=== PATIENT | male | born 1945 | race Caucasian/White ===

== ENCOUNTER 2024-01-29 07:51 | Inpatient (IN) | payer OTHER, MEDICARE ==
[~2024-01-29] VITALS: Ht 170.2 cm; Wt 86.7 kg
[2024-01-29] VITALS (7 sets, daily range): BP systolic 145–178; BP diastolic 85–98; PULSE 79–89; RESP 14–20; TEMP 97.3–98.6; O2SAT 95–98
[2024-01-29] MEDS ORDERED: iohexol 350MG/ML 100ml bottle IV ONE (08:02)
[2024-01-29 08:43] LABS: BASOPHILS # (AUTO) 0.1 X10'3 (0-0.2); BASOPHILS % (AUTO) 1.2 % (0-1); EOSINOPHILS # (AUTO) 0.1 X10'3 (0-0.9); EOSINOPHILS % (AUTO) 1.5 % (0-6); HEMATOCRIT 45.8 % (42.0-52.0); HEMOGLOBIN 15.3 g/dl (14.0-17.9); LYMPHOCYTES # (AUTO) 2.3 X10'3 (1.1-4.8); LYMPHOCYTES % (AUTO) 34.6 % (21-51); MEAN CORPUSCULAR HEMOGLOBIN 29.9 PG (27.0-31.0); MEAN CORPUSCULAR HGB CONC 33.5 g/dL (33.0-36.5); MEAN CORPUSCULAR VOLUME 89.3 FL (78-98); MEAN PLATELET VOLUME 7.9 FL (7.4-10.4); MONOCYTES # (AUTO) 0.5 X10'3 (0-0.9); MONOCYTES % (AUTO) 6.9 % (2-12); NEUTROPHILS # (AUTO) 3.7 X10'3 (1.8-7.7); NEUTROPHILS % (AUTO) 55.8 % (42-75); PLATELET COUNT 214 X10'3 (140-440); RED BLOOD COUNT 5.13 X10'6 (4.70-6.10); WHITE BLOOD COUNT 6.7 X10'3 (4.5-11.0)
[2024-01-29 09:20] LABS: APTT 24 SECONDS (22-32); PROTHROMBIN TIME 10.6 SECONDS (9.0-12.0)
[2024-01-29] MEDS ORDERED: diphenhydrAMINE 25mg capsule PO PRN (09:45)
[2024-01-29] MEDS ORDERED: HYDROcodone/acetaminophen 5mg/325mg tablet PO PRN (09:45)
[2024-01-29] MEDS ORDERED: magnesium hydroxide 30ml (MOM) UD suspension PO PRN (09:45)
[2024-01-29] MEDS ORDERED: morphine 2 MG/ML inj. syringe IV PRN ×2 (09:45)
[2024-01-29] MEDS ORDERED: mag hydrox/Alum hydrox/simeth 30ml oral suspension PO PRN (09:45)
[2024-01-29] MEDS ORDERED: ondansetron/PF 4mg/2ml inj IV PRN (09:45)
[2024-01-29] MEDS ORDERED: diphenhydrAMINE 50 mg/ml inj IV PRN (09:45)
[2024-01-29] MEDS ORDERED: HYDROcodone/acetaminophen 10/325mg tab PO PRN (09:45)
[2024-01-29] MEDS ORDERED: acetaminophen 325mg tablet PO PRN ×2 (09:45)
[2024-01-29] MEDS ORDERED: ondansetron 4mg rapidly disintigrating tab PO PRN (09:45)
[2024-01-29] MEDS ORDERED: bisacodyl 10mg suppository rectal RC PRN (09:45)
[2024-01-29] MEDS: aspirin 325mg tablet, delayed-release (Ecotrin) PO ONE (10:11)
[2024-01-29] MEDS: normal saline 1000ml 1,000 ML IV SCH (10:12)
[2024-01-29 10:34] LABS: ALBUMIN 3.5 G/DL (3.4-5.0); ANION GAP 11 (8-16); BLOOD UREA NITROGEN 9 MG/DL (7-18); BUN/CREATININE RATIO 6.9 (10.0-20.0); CALCIUM 8.5 MG/DL (8.5-10.1); CHLORIDE 107 MMOL/L (99-107); CREATININE 1.31 MG/DL (0.60-1.10); GLUCOSE 118 MG/DL (70-104); MAGNESIUM 1.9 MG/DL (1.5-2.4); PHOSPHORUS 3.2 MG/DL (2.3-4.5); POTASSIUM 4.2 MMOL/L (3.5-5.1); PRO BRAIN NATRIURETIC PEPTIDE 111 PG/ML (0-450); SODIUM 140 MMOL/L (135-145); TOTAL CARBON DIOXIDE 22.4 MMOL/L (24-32); eCRCL 43 ML/MIN; eGFR 53 ML/MIN
[2024-01-29] MEDS ORDERED: LISI20TA28 PO (10:42)
[2024-01-29 10:43] LABS: HEMOGLOBIN A1C 5.8 % (4.5-6.2)
[2024-01-29] MEDS ORDERED: CHOL20002 PO (11:38)
[2024-01-29 11:39] LABS: BILIRUBIN,URINE NEGATIVE (Neg); CLARITY,URINE CLEAR (Clear); COLOR,URINE YELLOW (Yellow); GLUCOSE, URINE NEGATIVE (Neg); KETONES,URINE NEGATIVE (Neg); LEUKOCYTE ESTERASE ,URINE NEGATIVE (Neg); NITRITES, URINE NEGATIVE (Neg); OCCULT BLOOD,URINE NEGATIVE (Neg); PH,URINE 5.5 (4.8-8.0); PROTEIN,URINE NEGATIVE (Neg); UROBILINOGEN,URINE 0.2 E.U/dL (0.2-1.0)
[2024-01-29 11:45] LABS: UA COLLECTION TYPE NON-SPECIFIED
[2024-01-29] MEDS ORDERED: diclofenac 1% gel TOP (14:17)
[2024-01-29] MEDS ORDERED: MOME13HF9 INH (14:17)
[2024-01-29] MEDS ORDERED: LIDO1ADH67 TOP (14:17)
[2024-01-29] MEDS ORDERED: FOCUS FACTOR PO (14:17)
[2024-01-29] MEDS: clopidogrel 75mg tablet PO SCH (14:18)
[2024-01-29 15:03] LABS: D-DIMER 0.47 MG/L FEU (0-0.50)
[2024-01-29 15:21] LABS: CREATINE KINASE 55 U/L (39-308); LIPASE 32 U/L (16-77); THYROID STIMULATING HORMONE 1.04 ulU/ml (0.34-4.50)
[2024-01-29] MEDS: docusate sod 100mg capsule PO SCH (20:00)
[2024-01-29] MEDS ORDERED: temazepam 15mg capsule PO PRN (21:00)
[2024-01-30 02:00] VITALS: BP 130/84; PULSE 76; RESP 14; TEMP 98.2; O2SAT 96
[2024-01-30 06:30] VITALS: BP 148/75; PULSE 95; RESP 14; TEMP 97.6; O2SAT 96
[2024-01-30] MEDS: pantoprazole 40mg Tablet.DR PO SCH (07:35)
[2024-01-30] MEDS: atorvastatin 20mg tablet PO SCH (07:35)
[2024-01-30] MEDS: aspirin 81mg, enteric-coated 1 TAB TABLET.DR PO SCH (07:35)
[2024-01-30 08:00] VITALS: RESP 14; O2SAT 96
[2024-01-30 08:44] LABS: BASOPHILS % (AUTO) 0.5 % (0-1); EOSINOPHILS # (AUTO) 0.1 X10'3 (0-0.9); EOSINOPHILS % (AUTO) 1.1 % (0-6); HEMATOCRIT 45.3 % (42.0-52.0); HEMOGLOBIN 15.1 g/dl (14.0-17.9); LYMPHOCYTES # (AUTO) 2.1 X10'3 (1.1-4.8); LYMPHOCYTES % (AUTO) 24.9 % (21-51); MEAN CORPUSCULAR HEMOGLOBIN 29.8 PG (27.0-31.0); MEAN CORPUSCULAR HGB CONC 33.3 g/dL (33.0-36.5); MEAN CORPUSCULAR VOLUME 89.4 FL (78-98); MEAN PLATELET VOLUME 8.6 FL (7.4-10.4); MONOCYTES # (AUTO) 0.8 X10'3 (0-0.9); MONOCYTES % (AUTO) 9.9 % (2-12); NEUTROPHILS # (AUTO) 5.4 X10'3 (1.8-7.7); NEUTROPHILS % (AUTO) 63.6 % (42-75); PLATELET COUNT 217 X10'3 (140-440); RED BLOOD COUNT 5.07 X10'6 (4.70-6.10); RED CELL DISTRIBUTION WIDTH 13.6 % (11.5-14.5); WHITE BLOOD COUNT 8.5 X10'3 (4.5-11.0)
[2024-01-30 09:03] LABS: CHLORIDE 107 MMOL/L (99-107); POTASSIUM 4.1 MMOL/L (3.5-5.1); SODIUM 141 MMOL/L (135-145)
[2024-01-30 09:38] LABS: ALANINE AMINOTRANSFERASE 27 U/L (12-78); ALBUMIN 3.3 G/DL (3.4-5.0); ALBUMIN/GLOBULIN RATIO 0.8 (1.1-1.5); ALKALINE PHOSPHATASE 50 IU/L (46-116); ANION GAP 14 (8-16); ASPARTATE AMINO TRANSFERASE 25 U/L (10-37); BILIRUBIN,TOTAL 1.1 MG/DL (0.1-1.0); BLOOD UREA NITROGEN 13 MG/DL (7-18); BUN/CREATININE RATIO 11.6 (10.0-20.0); CALCIUM 8.4 MG/DL (8.5-10.1); CHOL/HDL RATIO 3.5 (0.00-4.99); CHOLESTEROL 141 MG/DL (0-200); CREATININE 1.12 MG/DL (0.60-1.10); GLUCOSE 99 MG/DL (70-104); HDL CHOLESTEROL 40 MG/DL (35-60); LDL CHOLESTEROL 83 MG/DL (50-100); TOTAL PROTEIN 7.2 G/DL (6.4-8.2); eCRCL 50 ML/MIN; eGFR 63 ML/MIN
[2024-01-30 10:00] VITALS: BP 153/88; PULSE 82; RESP 16; TEMP 98.8; O2SAT 96
[2024-01-30 11:41] LABS: TRIGLYCERIDES 98 MG/DL (20-135)
[2024-01-30] MEDS ORDERED: CLOP75TA34 PO (14:44)
[2024-01-30] MEDS ORDERED: ASPI-1071 PO (14:44)
[2024-01-30] MEDS ORDERED: ATOR20TA66 PO (14:45)
== END 2024-01-30 15:30 | disposition home or self-care (01) | DRG 65 ==
LOC: ER 07:51 → ED HOLD 09:45 → ORTHO 4S 16:40
PROVIDERS: ADMIT Family Medicine; ATTEND Family Medicine
PROC: B3251ZZ Computerized Tomography (CT Scan) of Bilateral Common Carotid Arteries using Low Osmolar Contrast (ICD-10-PCS; principal; 2024-01-29)
PROC: B32G1ZZ Computerized Tomography (CT Scan) of Bilateral Vertebral Arteries using Low Osmolar Contrast (ICD-10-PCS; 2024-01-29)
PROC: B32R1ZZ Computerized Tomography (CT Scan) of Intracranial Arteries using Low Osmolar Contrast (ICD-10-PCS; 2024-01-29)
PROC: B3281ZZ Computerized Tomography (CT Scan) of Bilateral Internal Carotid Arteries using Low Osmolar Contrast (ICD-10-PCS; 2024-01-29)
DX: I63.9 Cerebral infarction, unspecified (principal); E87.20 Acidosis, unspecified; I16.1 Hypertensive emergency; N17.9 Acute kidney failure, unspecified; E66.9 Obesity, unspecified; I12.9 Hypertensive chronic kidney disease with stage 1 through stage 4 chronic kidney disease, or unspecified chronic kidney disease; N18.9 Chronic kidney disease, unspecified; G40.909 Epilepsy, unspecified, not intractable, without status epilepticus; Z68.30 Body mass index [BMI] 30.0-30.9, adult; Z88.2 Allergy status to sulfonamides
CPT/HCPCS: 36415; 70450; 70496; 70498; 70551; 71045; 80048; 80053; 80061; 81003; 82550; 82948; 83036; 83690; 83735; 83880; 84100; 84443; 84484; 85025; 85379; 85610; 85730; 87081; 93005; 93306; 97116; 97161; 97530; 99291; G0378; J3490; J7030; Q9967

== ENCOUNTER 2025-02-07 00:57 | Inpatient (IN) | payer OTHER, MEDICARE ==
[~2025-02-07] VITALS: Ht 170.2 cm; Wt 81.8 kg
[2025-02-07] VITALS (8 sets, daily range): BP systolic 113–144; BP diastolic 74–90; PULSE 78–98; RESP 15–18; TEMP 96.4–99.9; O2SAT 89–97
[~2025-02-07 00:57] MED LIST: ASPI-1071 PO; ATOR20TA66 PO; CHOL20002 PO; CLOP75TA34 PO; FOCUS FACTOR PO; LIDO1ADH67 TOP; LISI20TA28 PO; MOME13HF9 INH; diclofenac 1% gel TOP
[2025-02-07] MEDS: ondansetron/PF 4mg/2ml inj IV ONE (01:45)
[2025-02-07] MEDS: morphine 4 MG/ML inj SYRINge IV ONE (01:45)
[2025-02-07] MEDS: normal saline 1000ML IV soln IVB ONE (01:46)
[2025-02-07 02:00] LABS: BASOPHILS # (AUTO) 0.1 X10'3 (0-0.2); BASOPHILS % (AUTO) 0.4 % (0-1); EOSINOPHILS % (AUTO) 0.1 % (0-6); HEMATOCRIT 51.2 % (42.0-52.0); HEMOGLOBIN 17.2 g/dl (14.0-17.9); LYMPHOCYTES # (AUTO) 1.3 X10'3 (1.1-4.8); LYMPHOCYTES % (AUTO) 8.3 % (21-51); MEAN CORPUSCULAR HEMOGLOBIN 30.5 PG (27.0-31.0); MEAN CORPUSCULAR HGB CONC 33.5 g/dL (33.0-36.5); MEAN CORPUSCULAR VOLUME 90.9 FL (78-98); MEAN PLATELET VOLUME 8.1 FL (7.4-10.4); MONOCYTES # (AUTO) 0.6 X10'3 (0-0.9); MONOCYTES % (AUTO) 4.1 % (2-12); NEUTROPHILS # (AUTO) 13.8 X10'3 (1.8-7.7); NEUTROPHILS % (AUTO) 87.1 % (42-75); PLATELET COUNT 336 X10'3 (140-440); RED BLOOD COUNT 5.64 X10'6 (4.70-6.10); RED CELL DISTRIBUTION WIDTH 14.1 % (11.5-14.5); WHITE BLOOD COUNT 15.9 X10'3 (4.5-11.0)
[2025-02-07 02:19] LABS: ALANINE AMINOTRANSFERASE 46 U/L (12-78); ALBUMIN/GLOBULIN RATIO 0.8 (1.1-1.5); ALKALINE PHOSPHATASE 77 IU/L (46-116); ANION GAP 10 (8-16); ASPARTATE AMINO TRANSFERASE 31 U/L (10-37); BILIRUBIN,TOTAL 0.8 MG/DL (0.1-1.0); BLOOD UREA NITROGEN 19 MG/DL (7-18); BUN/CREATININE RATIO 12.9 (10.0-20.0); CALCIUM 9.8 MG/DL (8.5-10.1); CHLORIDE 97 MMOL/L (99-107); CREATININE 1.47 MG/DL (0.60-1.10); GLUCOSE 208 MG/DL (70-104); LIPASE 32 U/L (16-77); POTASSIUM 4.6 MMOL/L (3.5-5.1); SODIUM 137 MMOL/L (135-145); TOTAL CARBON DIOXIDE 29.7 MMOL/L (24-32); TOTAL PROTEIN 9.1 G/DL (6.4-8.2); eCRCL 37 ML/MIN; eGFR 46 ML/MIN
[2025-02-07] MEDS ORDERED: iohexol 300mg/ml 100ml inj. ONE (02:35)
[2025-02-07] MEDS ORDERED: magnesium hydroxide 30ml (MOM) UD suspension PO PRN (04:10)
[2025-02-07] MEDS ORDERED: magnesium Cl slow-release 64mg tablet PO PRN (04:10)
[2025-02-07] MEDS ORDERED: magnesium sulf-water 2g/50mL 50 ML IV PRN (04:10)
[2025-02-07] MEDS ORDERED: mag hydrox/Alum hydrox/simeth 30ml oral suspension PO PRN (04:10)
[2025-02-07] MEDS ORDERED: acetaminophen 325mg tablet PO PRN (04:10)
[2025-02-07] MEDS ORDERED: potassium Cl 40MEQ/1/2NS 520ml 520 ML IV PRN (04:10)
[2025-02-07] MEDS ORDERED: morphine 2 MG/ML inj. syringe IV PRN ×2 (04:10)
[2025-02-07] MEDS ORDERED: potassium Cl 20 mEq SR tablet PO PRN ×2 (04:10)
[2025-02-07] MEDS ORDERED: magnesium sulf-water 4G/100mL 100 ML IV PRN (04:10)
[2025-02-07] MEDS ORDERED: ondansetron/PF 4mg/2ml inj IV PRN (04:10)
[2025-02-07] MEDS: LidoCAINE 2% Topical Jelly 11mL syringe (UROJET) TOP ONE (04:12)
[2025-02-07] MEDS: piperacillin/tazo 4.5gm/100ml 100 ML IV ONE (04:24)
[2025-02-07] MEDS: normal saline 1000ml 1,000 ML IV SCH (05:35)
[2025-02-07] MEDS: K and/or MAG REPLACEMENT MC SCH (08:00)
[2025-02-07 08:51] LABS: MAGNESIUM 2.1 MG/DL (1.5-2.4); POTASSIUM 4.4 MMOL/L (3.5-5.1)
[2025-02-07 09:25] LABS: BILIRUBIN,URINE NEGATIVE (Neg); CLARITY,URINE CLEAR (Clear); COLOR,URINE YELLOW (Yellow); GLUCOSE, URINE NEGATIVE (Neg); KETONES,URINE NEGATIVE (Neg); LEUKOCYTE ESTERASE ,URINE NEGATIVE (Neg); NITRITES, URINE NEGATIVE (Neg); OCCULT BLOOD,URINE NEGATIVE (Neg); PH,URINE 6.5 (4.8-8.0); PROTEIN,URINE 30 mg/dl (Neg)
[2025-02-07 09:31] LABS: UA COLLECTION TYPE CLN CATCH MIDSTREAM
[2025-02-07 09:32] LABS: BACTERIA,URINE FEW /HPF (Neg); WBC,URINE 0-4 /HPF (0-4)
[2025-02-07 09:33] LABS: MUCUS STRANDS FEW /LPF (Neg); SQUAMOUS EPITHELIAL CELL,UR FEW /LPF (FEW)
[2025-02-07] MEDS: atorvastatin 20mg tablet PO SCH (09:54)
[2025-02-07] MEDS: docusate sod 100mg capsule PO SCH (09:55)
[2025-02-07] MEDS: lisinopril 10 MG tablet PO ONE (09:55)
[2025-02-07] MEDS: aspirin 81mg, enteric-coated 1 TAB TABLET.DR PO SCH (09:55)
[2025-02-07] MEDS: piperacillin/tazo 3.375gm/50ml 50 ML IV SCH (09:58)
[2025-02-07] MEDS: heparin, porcine 5000 units/ml vial SQ SCH (09:58)
[2025-02-07] MEDS: docusate sodium 100mg/10ml UD cup PO ONE (10:55)
[2025-02-07] MEDS: docusate sodium 100mg/10ml UD cup PO SCH (20:30)
[2025-02-08 06:00] VITALS: BP 119/77; PULSE 76; RESP 18; TEMP 97.8; O2SAT 96
[2025-02-08 06:16] LABS: ALANINE AMINOTRANSFERASE 35 U/L (12-78); ALBUMIN 2.9 G/DL (3.4-5.0); ALBUMIN/GLOBULIN RATIO 0.8 (1.1-1.5); ALKALINE PHOSPHATASE 61 IU/L (46-116); ANION GAP 6 (8-16); ASPARTATE AMINO TRANSFERASE 32 U/L (10-37); BLOOD UREA NITROGEN 22 MG/DL (7-18); BUN/CREATININE RATIO 16.4 (10.0-20.0); CALCIUM 8.2 MG/DL (8.5-10.1); CHLORIDE 105 MMOL/L (99-107); CREATININE 1.34 MG/DL (0.60-1.10); GLUCOSE 86 MG/DL (70-104); MAGNESIUM 1.9 MG/DL (1.5-2.4); SODIUM 142 MMOL/L (135-145); TOTAL CARBON DIOXIDE 31.5 MMOL/L (24-32); TOTAL PROTEIN 6.7 G/DL (6.4-8.2); eCRCL 41 ML/MIN; eGFR 51 ML/MIN
[2025-02-08 06:57] LABS: HEMATOCRIT 40.8 % (42.0-52.0); HEMOGLOBIN 13.6 g/dl (14.0-17.9); MEAN CORPUSCULAR HEMOGLOBIN 30.6 PG (27.0-31.0); MEAN CORPUSCULAR HGB CONC 33.3 g/dL (33.0-36.5); MEAN CORPUSCULAR VOLUME 91.8 FL (78-98); MEAN PLATELET VOLUME 7.8 FL (7.4-10.4); PLATELET COUNT 254 X10'3 (140-440); RED BLOOD COUNT 4.44 X10'6 (4.70-6.10); RED CELL DISTRIBUTION WIDTH 13.9 % (11.5-14.5); WHITE BLOOD COUNT 10.9 X10'3 (4.5-11.0)
[2025-02-08 06:58] LABS: BASOPHILS # (AUTO) 0.1 X10'3 (0-0.2); BASOPHILS % (AUTO) 0.6 % (0-1); EOSINOPHILS # (AUTO) 0.1 X10'3 (0-0.9); EOSINOPHILS % (AUTO) 1.2 % (0-6); LYMPHOCYTES # (AUTO) 2.6 X10'3 (1.1-4.8); LYMPHOCYTES % (AUTO) 23.5 % (21-51); MONOCYTES # (AUTO) 1.1 X10'3 (0-0.9); MONOCYTES % (AUTO) 9.8 % (2-12); NEUTROPHILS # (AUTO) 7.1 X10'3 (1.8-7.7); NEUTROPHILS % (AUTO) 64.9 % (42-75)
[2025-02-08 07:49] VITALS: PULSE 94; RESP 18; O2SAT 96
[2025-02-08 07:54] VITALS: PULSE 89; RESP 16
[2025-02-08 10:00] VITALS: BP 155/79; PULSE 82; RESP 19; TEMP 97.5; O2SAT 94
[2025-02-08 20:34] VITALS: PULSE 74; RESP 16; O2SAT 93
[2025-02-08 20:35] VITALS: PULSE 74; RESP 16
[2025-02-09 05:58] LABS: BASOPHILS % (AUTO) 0.4 % (0-1); EOSINOPHILS # (AUTO) 0.1 X10'3 (0-0.9); EOSINOPHILS % (AUTO) 1.5 % (0-6); HEMATOCRIT 38.3 % (42.0-52.0); HEMOGLOBIN 12.8 g/dl (14.0-17.9); LYMPHOCYTES # (AUTO) 1.8 X10'3 (1.1-4.8); LYMPHOCYTES % (AUTO) 18.5 % (21-51); MEAN CORPUSCULAR HEMOGLOBIN 30.6 PG (27.0-31.0); MEAN CORPUSCULAR HGB CONC 33.4 g/dL (33.0-36.5); MEAN CORPUSCULAR VOLUME 91.7 FL (78-98); MONOCYTES # (AUTO) 1.1 X10'3 (0-0.9); MONOCYTES % (AUTO) 11.7 % (2-12); NEUTROPHILS # (AUTO) 6.6 X10'3 (1.8-7.7); NEUTROPHILS % (AUTO) 67.9 % (42-75); PLATELET COUNT 241 X10'3 (140-440); RED BLOOD COUNT 4.18 X10'6 (4.70-6.10); RED CELL DISTRIBUTION WIDTH 13.8 % (11.5-14.5); WHITE BLOOD COUNT 9.7 X10'3 (4.5-11.0)
[2025-02-09 06:00] VITALS: BP 145/77; PULSE 79; RESP 16; TEMP 98; O2SAT 93
[2025-02-09 06:14] LABS: ALANINE AMINOTRANSFERASE 30 U/L (12-78); ALBUMIN 2.7 G/DL (3.4-5.0); ALBUMIN/GLOBULIN RATIO 0.8 (1.1-1.5); ALKALINE PHOSPHATASE 56 IU/L (46-116); ANION GAP 7 (8-16); ASPARTATE AMINO TRANSFERASE 20 U/L (10-37); BLOOD UREA NITROGEN 24 MG/DL (7-18); BUN/CREATININE RATIO 19.5 (10.0-20.0); CHLORIDE 106 MMOL/L (99-107); CREATININE 1.23 MG/DL (0.60-1.10); GLUCOSE 79 MG/DL (70-104); MAGNESIUM 1.9 MG/DL (1.5-2.4); POTASSIUM 3.8 MMOL/L (3.5-5.1); SODIUM 140 MMOL/L (135-145); TOTAL CARBON DIOXIDE 26.7 MMOL/L (24-32); TOTAL PROTEIN 6.2 G/DL (6.4-8.2); eCRCL 45 ML/MIN; eGFR 57 ML/MIN
[2025-02-09 08:00] VITALS: PULSE 74; RESP 16; O2SAT 93
[2025-02-09 10:00] VITALS: BP 91/66
[2025-02-09 10:29] VITALS: BP 118/66; PULSE 82; RESP 14; TEMP 98.1; O2SAT 94
[2025-02-09] MEDS ORDERED: POLY17PO10 PO (13:38)
[2025-02-09] MEDS ORDERED: ATOR20TA66 PO (13:38)
== END 2025-02-09 14:00 | disposition home or self-care (01) | DRG 390 ==
LOC: ER 00:57 → ED HOLD 03:48 → ORTHO 4S 06:55
PROVIDERS: ADMIT Surgery Surgical Critical Care; ATTEND Nurse Practitioner Family
PROC: 0D9670Z Drainage of Stomach with Drainage Device, Via Natural or Artificial Opening (ICD-10-PCS; principal; 2025-02-07)
PROC: BW211ZZ Computerized Tomography (CT Scan) of Abdomen and Pelvis using Low Osmolar Contrast (ICD-10-PCS; 2025-02-07)
DX: K56.600 Partial intestinal obstruction, unspecified as to cause (principal); I10 Essential (primary) hypertension; E66.9 Obesity, unspecified; E78.5 Hyperlipidemia, unspecified; J44.9 Chronic obstructive pulmonary disease, unspecified; Z79.899 Other long term (current) drug therapy; Z86.73 Personal history of transient ischemic attack (TIA), and cerebral infarction without residual deficits; Z88.2 Allergy status to sulfonamides; Z68.23 Body mass index [BMI] 23.0-23.9, adult
CPT/HCPCS: 36415; 43762; 71045; 74177; 80053; 81001; 83605; 83690; 83735; 84132; 84145; 84484; 85025; 87040; 87081; 93005; 94640; 94760; 96361; 96365; 96366; 96372; 96375; 99285; A4615; G0378; J1644; J2270; J2405; J2543; J7030; Q9967